=== PATIENT | female | born 1995 | race Caucasian/White ===

== ENCOUNTER 2017-03-10 14:15 | Emergency (ER) | payer OTHER ==
[2017-03-10 14:34] LABS: URINE SOURCE CLEAN CATCH
[2017-03-10 14:37] LABS: URINE APPEARANCE HAZY; URINE BILIRUBIN NEG (NEG); URINE BLOOD 1+ (NEG); URINE COLOR YELLOW; URINE GLUCOSE NEG (NORM); URINE KETONE NEG (NEG); URINE LEUKOCYTE ESTERASE 1+ (NEG); URINE NITRATE NEG (NEG); URINE PH 5.5 (5-8); URINE PROTEIN NEG (NEG); URINE SPECIFIC GRAVITY >=1.030 (1.003-1.035); URINE UROBILINOGEN 0.2 MG/DL (NORM)
[2017-03-10 14:51] LABS: MICRO INDICATED? YES
[2017-03-10 15:00] LABS: CULTURE INDICATED? YES; URINE BACTERIA 1+ (NEG); URINE SQUAMOUS EPITHELIAL CELL MODERATE /[HPF]; URINE TRICHOMONAS PRESENT; URINE WBC 25-50 /[HPF] (0-5)
[2017-03-12 10:00] LABS: CHLAMYDIA TRACH Detected (Not Detected); N GONOR Not Detected (Not Detected)
== END 2017-03-10 15:40 | disposition home or self-care (01) ==
LOC: SED 14:15 → EDSEX 14:15 → SED 14:32
PROVIDERS: Physician Assistant
DX: N30.00 Acute cystitis without hematuria (principal); A59.9 Trichomoniasis, unspecified
CPT/HCPCS: 81003; 84703; 87086; 87491; 87591; 99283